=== PATIENT | male | born 1990 | race Caucasian/White ===

== ENCOUNTER 2017-02-13 12:17 | Emergency (ER) | payer OTHER ==
[2017-02-13 12:26] VITALS: BP 123/66
[2017-02-13] MEDS ORDERED: Ondansetron ODT TAB* 4 MG PO ONE (12:37)
--- NOTE | 2017-02-13 13:23 | UC ---
Indu Welsh Claudia, scribed for Jose Hylton MD on 02/13/17 at 1227 . General HPI - HPI Summary HPI Summary: 26 year old male presents to the [facility] with NVD since 0400 today. Pt notes 6 bouts of diarrhea and 10 bouts of emesis today. Pt notes that he feels weak with chills and some lightheadedness. He notes that he has not vomited since 1100. He ate leftover food last night of 2 day old tofu and thinks he has food poisoning. Pt notes PO intolerance. He denies any abd pain, urinary Sx as well as any aggravating or alleviating factors. - History of Current Complaint Stated Complaint: ABDOMINAL COMPLAINT Time Seen by Provider: 02/13/17 12:18 Hx Obtained From: Patient Onset/Duration: Sudden Onset, Still Present Associated Signs & Symptoms: Positive: Diarrhea, Nausea, Vomiting. Negative: Abdominal Pain - Allergy/Home Medications Allergies/Adverse Reactions: Allergies Allergy/AdvReac Type Severity Reaction Status Date / Time No Known Allergies Allergy Verified 01/04/16 15:33 Home Medications: Home Medications Loperamide CAP* [Imodium CAP*] 02/13/17 [History] PMH/Surg Hx/FS Hx/Imm Hx Previously Healthy: Yes - Surgical History Surgical History: None - Family History Known Family History: Negative: Hypertension, Diabetes - Social History Occupation: Student Lives: With Family Alcohol Use: Occasionally Substance Use Type: None Smoking Status (MU): Never Smoked Tobacco Review of Systems Constitutional: Chills, Fatigue Skin: Negative Eyes: Negative ENT: Negative Respiratory: Negative Cardiovascular: Negative Gastrointestinal: Vomiting, Nausea Genitourinary: Negative Motor: Negative Neurovascular: Negative Musculoskeletal: Negative Neurological: Other - lightheaded Psychological: Negative All Other Systems Reviewed And Are Negative: Yes Physical Exam Triage Information Reviewed: Yes Appearance: Well-Appearing, No Pain Distress, Well-Nourished Vital Signs: Initial Vital Signs Temp 98.8 F 02/13/17 12:19 Pulse 100 02/13/17 12:19 Resp 16 02/13/17 12:19 BP 123/66 02/13/17 12:19 Pulse Ox 100 02/13/17 12:19 Vital Signs Reviewed: Yes Eyes: Positive: Conjunctiva Clear ENT: Positive: Normal ENT inspection, Hearing grossly normal, Pharynx normal Neck: Positive: Supple, Nontender, No Lymphadenopathy Respiratory: Positive: Chest non-tender, Lungs clear, Normal breath sounds Cardiovascular: Positive: Tachycardia Abdominal Exam: Normal Abdomen Description: Positive: Nontender, Soft. Negative: CVA Tenderness (R), CVA Tenderness (L), Distended, Guarding Bowel Sounds: Negative: Present Skin: Positive: rashes Course/Dx - Differential Dx - Multi-Symptom Provider Diagnoses: gastroenteritis Discharge - Discharge Plan Condition: Stable Disposition: HOME Prescriptions: Ondansetron [Zofran 8 MG Odt] 8 mg PO Q8H #9 tab Patient Education Materials: Acute Nausea and Vomiting (ED) Referrals: No Primary Care Phys,NOPCP [Primary Care Provider] - If Needed Additional Instructions: please go to ED if cannot keep any fluid in may need IV hydration if getting dehydrated The documentation as recorded by the Indu escalante Claudia accurately reflects the service I personally performed and the decisions made by Concetta paz Hossein, MD.
== END 2017-02-13 13:20 | disposition home or self-care (01) ==
LOC: UCEAST 12:17
DX: K52.9 Noninfective gastroenteritis and colitis, unspecified (principal)
CPT/HCPCS: 99212; A9270-GY; G0463